=== PATIENT | female | born 1970 | race Caucasian/White ===

== ENCOUNTER 2021-12-05 11:23 | Emergency (ER) | payer OTHER, SELFPAY ==
[2021-12-05 11:37] VITALS: BP 125/95; PULSE 81; RESP 16; TEMP 36.5; O2SAT 97
--- NOTE | 2021-12-05 12:05 | ED.ANIMALBIT ---
HPI - Animal Bite General Chief Complaint: Animal Bite Stated Complaint: RACOON BITE Time Seen by Provider: 12/05/21 12:05 Source: patient Mode of arrival: ambulatory Limitations: no limitations History of Present Illness HPI narrative: Patient is a 51-year-old female presenting to the emergency department for evaluation of raccoon bite to left upper extremity. Patient states that she was outside picking up trash that was scattered on the ground, when a raccoon that was behind a trash bin that her left arm at the left wrist. Patient presented to an urgent care today and then was referred to this hospital for treatment by animal control. Patient reports mild pain and swelling at the site, she has been seen by her primary care physician has been prescribed antibiotics. She is here for rabies prophylaxis. She denies fever, chills, numbness, significant redness at the site. Denies significant wrist pain, elbow pain. Denies myalgias. Patient denies numbness or weakness. 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 Related Data Allergies Allergy/AdvReac Type Severity Reaction Status Date / Time Cat Dander Allergy Unknown Swelling Uncoded 12/05/21 11:53 RAGWEED Allergy Unknown Itching Uncoded 12/05/21 11:53 Review of Systems Review of Systems: CONSTITUTIONAL: Denies fever CARDIOVASCULAR: Denies chest pain RESPIRATORY: Denies cough or dyspnea. GASTROINTESTINAL: Denies abdominal pain SKIN: Denies rash, reports bite billings left wrist denies significant redness or swelling MUSCULOSKELETAL: Denies back pain NEUROLOGIC: Denies headache, denies numbness or weakness COUNT INCLUDES THE [facility] Family History Family History (Updated 03/24/14 @ 07:13 by DOCTOR UNKNOWN) Mother Family history of malignant neoplasm of ovary Other Diabetes mellitus Social History Social History Alcohol intake: current Exam Narrative: GENERAL: Awake, alert, conversant HEAD: Normocephalic, atraumatic. EYES: PERRLA and EOMI. ENT: Nares clear, no rhinorrhea or epistaxis. Mucous membranes moist. NECK: Supple. CHEST: No respiratory distress, breathing even and non labored HEART: Regular rate, sinus rhythm ABDOMEN:Non distended, non tender EXTREMITIES: Normal range of motion. No edema. SKIN: Warm, dry, there is puncture wound to the medial aspect of the left wrist, lateral aspect of the left wrist with mild edema without induration.No significant erythema or induration. Radial pulse 2+, intact sensation m/u/r nerve distribution. NEURO:No focal deficits. Alert and oriented x3 Course Vital Signs Vital signs: Vital Signs Temperature 36.5 C 12/05/21 11:37 Pulse Rate 81 12/05/21 11:37 Respiratory Rate 16 12/05/21 11:37 Blood Pressure 125/95 H 12/05/21 11:37 Pulse Oximetry 97 12/05/21 11:37 Temperature 36.5 C 12/05/21 11:37 Pulse Rate 81 12/05/21 11:37 Respiratory Rate 16 12/05/21 11:37 Blood Pressure 125/95 H 12/05/21 11:37 Pulse Oximetry 97 12/05/21 11:37 MDM - Animal Bite MDM Narrative Medical decision making narrative: Patient with possible rabies exposure from raccoon bite yesterday. Patient without any sign of systemic infection or even local infection type symptoms on exam. There is no local cellulitis. There is a small amount of edema without induration. There is no bony tenderness or limitation on exam. Patient was given appropriate dose of rabies immunoglobulin per weight-based protocol which was injected at the site of bite as well as left upper extremity. Vaccine was administered in the right upper extremity. Patient will have follow-up per protocol with infectious disease nurse as well as return to the ER on the for repeat dosing. As there is no bony tenderness, x ray imaging was not obtained. Patient was advised to take her antibiotic prescribed by her primary care physician as prescribed. Patient was given strict return precautions Differential Diagnosis Differential di
[2021-12-05] MEDS: RABIES VACCINE (RABAVERT) 2.5 UNITS VIAL IM (13:39)
[2021-12-05] MEDS: RABIES IMMUNE GLOBULIN/PF 1,500 UNITS/5 ML VIAL 1500 UNITS IM (14:00)
--- NOTE | 2021-12-05 14:05 | PC.NURSE ---
rabies immunoglobin administered by edp.
[2021-12-05] MEDS: RABIES IMMUNE GLOBULIN/PF 300 UNITS/ML VIAL 220 UNITS IM (14:31)
== END 2021-12-05 14:44 | disposition home or self-care (01) ==
PROVIDERS: Emergency Provider Emergency Medicine
DX: S61.552A Open bite of left wrist, initial encounter (principal); Z29.14 Encounter for prophylactic rabies immune globulin; Z23 Encounter for immunization; W55.51XA Bitten by raccoon, initial encounter
CPT/HCPCS: 90375; 90471; 90675; 96372; 99284

== ENCOUNTER 2021-12-08 11:20 | Emergency (ER) | payer OTHER, SELFPAY ==
--- NOTE | 2021-12-08 12:26 | ED.GENADULT ---
HPI - General Adult General Chief complaint: Unspecified Stated complaint: rabies vaccine Time Seen by Provider: 12/08/21 11:58 History of Present Illness HPI narrative: Patient is a 51-year-old female who presents ER for a second dose of the rabies vaccine. She was bitten by a raccoon that was in a recycling container 3 days ago. She has developed no new symptoms. Bite wounds are healing well to the left wrist. No cellulitis or drainage. No fevers or chills or sweats. Related Data Allergies Allergy/AdvReac Type Severity Reaction Status Date / Time Cat Dander Allergy Unknown Swelling Uncoded 12/05/21 11:53 RAGWEED Allergy Unknown Itching Uncoded 12/05/21 11:53 Review of Systems Constitutional: Constitutional: Denies chills and Denies fever(s) Musculoskeletal: Musculoskeletal: Denies myalgias, Denies arthralgias, Denies joint swelling and Denies muscle cramps Integumentary/Breasts: Skin/Breast: Denies rash, Denies skin ulcer and Denies wounds PMFSH Past Medical History Medical History (Updated 12/08/21 @ 12:30 by Sarwat Fields MD) Anxiety Depression Hypertension Surgical History Surgical History (Updated 12/08/21 @ 12:28 by Sarwat Fields MD) H/O: hysterectomy Hx of appendectomy Family History Family History (Updated 03/24/14 @ 07:13 by DOCTOR UNKNOWN) Mother Family history of malignant neoplasm of ovary Other Diabetes mellitus Social History Social History Alcohol intake: current Exam Narrative: GENERAL: Well-appearing, well-nourished, and in no acute distress. HEAD: Normocephalic, atraumatic. EXTREMITIES: Normal range of motion. No edema. SKIN: Warm, dry, no rash. Healing bite wound left wrist. NEURO: Alert and oriented x3. PSYCH: Normal mood and affect. Course Course Emergency Course: Will give rabies immunization. She is aware that she should return on 12/12/2021 and see the infectious disease nurse. Discharge Plan Discharge Clinical Impression: Animal bite Patient Disposition: Home, Self-Care Condition: Stable Instructions: Rabies Vaccine (By injection) Additional Instructions: Follow-up on 12/12/2021 infectious disease nurse. Return to the ER if you have fevers or chills or sweats, you have diffuse body aches, you have additional concerns. Follow-up/Referrals: PHYSICIAN NOT ON STAFF,NONSTAFF [Primary Care Provider] - 12/12/21
[2021-12-08] MEDS: RABIES VACCINE (RABAVERT) 2.5 UNITS VIAL IM (13:09)
== END 2021-12-08 13:15 | disposition home or self-care (01) ==
PROVIDERS: Emergency Provider Emergency Medicine
DX: Z29.14 Encounter for prophylactic rabies immune globulin (principal); S61.552A Open bite of left wrist, initial encounter; Z23 Encounter for immunization; W55.51XA Bitten by raccoon, initial encounter
CPT/HCPCS: 90471; 90675; 99282

== ENCOUNTER 2021-12-19 06:50 | Outpatient (RCR) | payer OTHER, SELFPAY | END 2022-03-12 23:59 | disposition home or self-care (01) | LOC: ANHVASCINF 06:50 | PROVIDERS: Visit Provider Emergency Medicine | DX: Z20.3 Contact with and (suspected) exposure to rabies (principal) | CPT/HCPCS: 90471; 90675 ==